=== PATIENT | male | born 1980 | race Caucasian/White ===

== ENCOUNTER 2019-11-07 01:27 | Day surgery (SDC) | payer BC, SELFPAY ==
[2019-11-02 10:46] VITALS: BMI 40.9
--- NOTE | 2019-11-05 15:16 | P.PNAN_ITS ---
Anes - Eval Pre Procedure Procedure: Operation Date: 11/07/19 10:30 Proposed Procedures p Esophagogastroduodenoscopy - Elvis Carranza MD Date/Time: 11/05/19 15:16 Pre Op Diagnosis: GERD Patient Data Age: 39 Gender: M Height: 6 ft 7 in Weight: 165 kg Allergies Allergy/AdvReac Type Severity Reaction Status Date / Time No Known Allergies Allergy Mild Verified 11/02/19 10:43 Home Medications Medication Instructions Recorded Confirmed Type amitriptyline 100 mg PO HS 11/02/19 11/02/19 History clonazepam 0.5 mg PO HS 11/02/19 11/02/19 History fenofibrate nanocrystallized 145 mg PO DAILY 11/02/19 11/02/19 History metoprolol succinate 50 mg PO DAILY 11/02/19 11/02/19 History pantoprazole 40 mg PO HS 11/02/19 11/02/19 History Patient hx anesthesia problems: none Family hx anesthesia problems: none PMFSH Past Medical History Medical History ADHD (attention deficit hyperactivity disorder) Anxiety Chronic GERD Hypertension Morbid obesity with BMI of 40.0-44.9, adult Exam Day of Procedure 11/05/19 15:16
[2019-11-07 09:34] VITALS: BP 146/101; PULSE 105; RESP 20; TEMP 36.5; O2SAT 98
[2019-11-07] MEDS: LACTATED RINGERS 1,000 ML 150 ML IV CONT (09:38)
--- NOTE | 2019-11-07 10:06 | P.PNAN_ITS ---
Anes - Eval Final PreProcedure Day of Procedure 11/07/19 10:06 Patient weight: obese Heart: regular rate and rhythm Lungs: clear to auscultation Airway: Mallampati scale class 1 Neurological: alert and oriented Last oral intake: >/= 8 hours ASA classification: III Emergent: no Anesthetic plan: proceed Anesthesia type and monitoring: general GIVS and standard monitoring Informed Consent: The patient's anesthetic plan and its attendant risks and be nefits were discussed with the patient/family/POA. Questions were solicited and answers provided to the satisfaction of the patient/family/POA.
--- NOTE | 2019-11-07 10:15 | P.CONGI_ITS ---
Assessment and Plan Additional Plan This is a 39-year-old white male patient seen in evaluation at the request of Dr. Jg Gutierrez. Patient complains of heartburn and acid reflux. He presents today for EGD. Patient has had heartburn reflux for many months. Symptoms occur before breakfast. He has had no help trying Pepcid and subsequently Carafate as an outpatient. Patient recently found to have strep throat. Treated with antibiotics for 7 days with improvement. He does notice concomitant phlegm in his throat. He has a long history of GE reflux disease. For 8 years has been treated with Protonix. He denies any dysphagia, bleeding, or weight loss. Past medical history also significant for ADHD and obesity. hypertension, Current medications include pantoprazole 40 mg p.o. daily. Amitriptyline. Clonazepam. Fenofibrate. Metoprolol. He has no stated drug allergies. Review of systems is significant for ongoing heartburn despite current medications. He does notice throat pain attributed to pharyngitis. He has been treated for thrush after ease recent treatment for strep throat. Family history noncontributory Physical exam reveals patient to be alert. Vital signs stable. HEENT exam unremarkable. Appears as though pharyngitis is gone. Lungs are clear to auscultation and percussion. Heart is without murmur or extra sounds. Abdominal exam bowel sounds are present soft nontender with no hepatosplenomegaly. Digital external rectal exam deferred at this time. Impression 1. Throat pain. Status post treatment for strep throat. 2. Chronic GE reflux disease. Plan is for EGD because of ongoing heartburn. In recent throat pain. Plan is to continue pantoprazole. Anti-reflux measures are reinforced and should continue as well. GI Consult Note Consult date/time: 11/07/19 10:15 HPI: Russ Colon is a 39 year old male [facility] Past Medical History Medical History ADHD (attention deficit hyperactivity disorder) Anxiety Chronic GERD Hypertension Morbid obesity with BMI of 40.0-44.9, adult Meds Home Medications and Allergies Home Medications Medication Instructions Recorded Confirmed Type amitriptyline 100 mg PO HS 11/02/19 11/02/19 History clonazepam 0.5 mg PO HS 11/02/19 11/02/19 History fenofibrate nanocrystallized 145 mg PO DAILY 11/02/19 11/02/19 History metoprolol succinate 50 mg PO DAILY 11/02/19 11/02/19 History pantoprazole 40 mg PO HS 11/02/19 11/02/19 History Allergies Allergy/AdvReac Type Severity Reaction Status Date / Time No Known Allergies Allergy Mild Verified 11/02/19 10:43 Vital Signs Vital Signs - 24 hr 11/07/19 09:34 Temperature 36.5 C Pulse Rate 105 H Respiratory Rate 20 Blood Pressure 146/101 H Pulse Oximetry 98
[2019-11-07] MEDS: BENZOCAINE (*SP) 60 ML SPRAY CAN (HURRICAINE) 1 SPRAY MUCOUS MEM (11:00)
[2019-11-07 11:09] VITALS: BP 165/106; PULSE 100; RESP 25; O2SAT 96
[2019-11-07 11:19] VITALS: BP 158/110; PULSE 101; RESP 26; O2SAT 96
[2019-11-07 11:29] VITALS: BP 136/102; PULSE 86; RESP 17; O2SAT 97
== END 2019-11-07 11:38 | disposition home or self-care (01) ==
PROVIDERS: PCP Internal Medicine; Visit Provider Internal Medicine Gastroenterology
PROC: 0DJ08ZZ Inspection of Upper Intestinal Tract, Via Natural or Artificial Opening Endoscopic (ICD-10-PCS; CPT 43235; principal; 2019-11-07 10:30)
DX: K21.9 Gastro-esophageal reflux disease without esophagitis (principal); I10 Essential (primary) hypertension; F90.9 Attention-deficit hyperactivity disorder, unspecified type; F41.9 Anxiety disorder, unspecified; E66.01 Morbid (severe) obesity due to excess calories; Z68.41 Body mass index [BMI] 40.0-44.9, adult
CPT/HCPCS: 43235; J2704; J7120

== ENCOUNTER 2020-02-09 10:36 | Outpatient (CLI) | payer BC, SELFPAY ==
--- NOTE | ~2020-02-09 | US_ITS ---
EXAMINATION: US thyroid EXAM DATE: 02/09/2020 11:03 INDICATION: Family history of endocrine disease. Lump in neck. Cough and sore throat for 5 months, ne ck pressure for one month. TECHNIQUE: Multiple grayscale and Doppler images of the thyroid were obtained (by a technologist who performed the scan) and subsequently reviewed. Individual nodules and recommendations may be reporte d in accordance with TI-RADS system as designated by the 2017 ACR White Paper TI-RADS committee. The re is no prior study for comparison. FINDINGS: The right thyroid lobe measures 6.3 x 2.6 x 3.1 cm, the left measuring 5.3 x 1.7 x 2.0 cm. This is mo derately enlarged. There are scattered thyroid nodules. Largest nodule is in the right thyroid lobe measuring 1.5 x 1.6 x 1.5 centimeters, solid (2 points), hypoechoic (2 points), wider than tall, smooth margin, containing macrocalcification(s) causing acous tic shadowing (1 point), category TR4 for this nodule. IMPRESSION: 1. Multinodular goiter. 2. Consider ultrasound-guided FNA of largest right thyroid lobe nodule. Reviewed, dictated and finalized at location A.
== END 2020-02-09 10:37 | disposition home or self-care (01) ==
PROVIDERS: PCP Internal Medicine; Visit Provider Internal Medicine
DX: Z83.49 Family history of other endocrine, nutritional and metabolic diseases (principal)
CPT/HCPCS: 76536

== ENCOUNTER 2020-05-29 10:01 | Outpatient (CLI) | payer BC, SELFPAY ==
--- NOTE | ~2020-05-29 | US_ITS ---
EXAMINATION: US FNA w image guidance DATE: 05/29/2020 10:51 INDICATION: Nontoxic multinodular goiter. TECHNIQUE: The procedure and its benefits, risks, and benefits were discussed with the patient. Risks specifical ly discussed included bleeding. The patient verbalized understanding of the risks and agreed to proce ed. The neck was prepped and draped in the usual sterile manner. 1% lidocaine was used for local ane sthesia. 5 passes were made with a 25G needle into the lesion. Appropriate needle location was docu mented with continuous sonographic guidance. There were no immediate complications. The patient unde rstood to call the ordering physician for results after a week and a half and verbalized that underst anding. FINDINGS: Grayscale ultrasound images demonstrate needles advanced into a 1.6 cm nodule with macrocalcification s in right thyroid lobe for biopsy. IMPRESSION: 1. Ultrasound-guided fine needle aspiration of a right thyroid nodule. Reviewed, dictated and finalized at location A.
== END 2020-05-29 10:02 | disposition home or self-care (01) ==
LOC: ANHIMG 10:04
PROVIDERS: PCP Internal Medicine; Visit Provider Internal Medicine Endocrinology, Diabetes & Metabolism
DX: E04.2 Nontoxic multinodular goiter (principal)
CPT/HCPCS: 10005; 88173; 88305

== ENCOUNTER 2021-02-14 15:46 | Outpatient (CLI) | payer BC, SELFPAY ==
--- NOTE | ~2021-02-14 | US_ITS ---
EXAMINATION: US thyroid DATE: 02/14/2021 16:15 INDICATION: Nontoxic multinodular goiter TECHNIQUE: Multiple ultrasound images of the thyroid were obtained. COMPARISON: 02/09/2020 FINDINGS: The right thyroid lobe measures 6.5 x 2.2 x 2.2 cm. The left thyroid lobe measures 4.9 x 1.6 x 1.7 c m. There are multiple bilateral thyroid nodules which are stable to decreased in size. The most susp icious nodule is on the right and has undergone interval benign biopsy. Normal vascular flow is prese nt. IMPRESSION: 1. Multinodular goiter without suspicious interval change. Reviewed, dictated and finalized at location A.
== END 2021-02-14 15:47 | disposition home or self-care (01) ==
PROVIDERS: PCP Internal Medicine; Visit Provider Internal Medicine Endocrinology, Diabetes & Metabolism
DX: E04.2 Nontoxic multinodular goiter (principal)
CPT/HCPCS: 76536

== ENCOUNTER 2022-01-14 09:19 | Outpatient (CLI) | payer BC, SELFPAY ==
--- NOTE | ~2022-01-14 | US_ITS ---
EXAMINATION: US thyroid DATE: 01/14/2022 10:08 INDICATION: Nontoxic multinodular goiter. TECHNIQUE: Multiple ultrasound images of the thyroid were obtained. COMPARISON: Ultrasound 02/14/2021, 05/29/2020, 02/09/20 FINDINGS: The right thyroid lobe measures 6.2 x 2.8 x 3.0 cm. The left thyroid lobe measures 5.9 x 1.9 x 1.8 c m. In the right thyroid lobe, there is a 10 mm solid, hypoechoic, [id number] nodule with smooth margin without echogenic foci (TI-RADS TR4). In the right thyroid lobe, there is a 16 mm mixed cysti c and solid, hypoechoic, vxbap-npid-ewhe nodule with smooth margin without echogenic foci (TR3). In t he right thyroid lobe, there is a 16 mm solid, hypoechoic, [id number]-qvax-[id number] nodule with irregular suleiman in and macrocalcifications (TR5), stable from 05/29/20 when biopsy was benign. In the left thyroid nodu le, there is a 6 mm solid, hypoechoic, very hypoechoic, kgpgi-dmdr-blgr nodule with smooth margin and punctate echogenic foci (TR5). IMPRESSION: 1. Multinodular goiter. Thyroid ultrasound is recommended in one year. Reviewed, dictated and finalized at location B.
== END 2022-01-14 09:20 | disposition home or self-care (01) ==
LOC: ANHIMG 09:20
PROVIDERS: PCP Internal Medicine; Visit Provider Internal Medicine Endocrinology, Diabetes & Metabolism
DX: E04.2 Nontoxic multinodular goiter (principal); E11.9 Type 2 diabetes mellitus without complications
CPT/HCPCS: 76536